=== PATIENT | male | born 1935 | race Caucasian/White ===

== ENCOUNTER 2017-06-23 12:19 | Emergency (ER) | payer MEDICARE ==
--- NOTE | ~2017-06-23 | CR230 ---
[facility]. [facility] A Service of [facility] & [facility] RADIOLOGY TEXT RESULTS PATIENT: CRISTINE GREEN LOCATION: SED : 36 UNIT #: [id number] AGE: [address]: ALEXA SANTANA SEX: M ORDER DR: [id number] [place] [address] [id number] E MR#: [id number] Acc #: [id number] NAME: CRISTINE GREEN : 1935 SEX: M STUDY DATE/TIME: 06/23/2017 12:45 UNIT: SED ROOM: STUDY DESCRIPTION: CR Shoulder Min 2 View Rt Ordering Physician: [facility] Primary Care Physician: Isra Yoder M.D. MEDICAL IMAGING REPORT This report is preliminary unless electronic signature is present. EXAM Right shoulder INDICATIONS Shoulder pain after fall yesterday. FINDINGS 3 views of the right shoulder were obtained. 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 No fracture or dislocation is seen. There is no AC joint separation. IMPRESSION AC joint and glenohumeral joint arthropathy. No acute findings. Dictated by... Johnny Alvarenga Jr., M.D. THIS IS AN ELECTRONICALLY VERIFIED REPORT Johnny Alvarenga Jr., M.D. at 06/24/2017 8:49 AM RLK/thuan TD: 06/23/2017 18:27 JOB #: [id number] MEDICAL IMAGING REPORT Page 1 of 1
--- NOTE | ~2017-06-23 | CR151 ---
[facility]. [facility] A Service of [facility] & [facility] RADIOLOGY TEXT RESULTS PATIENT: CRISTINE GREEN LOCATION: SED : 36 UNIT #: [id number] AGE: [address]: ALEXA SANTANA SEX: M ORDER DR: [id number] [place] [address] [id number] E MR#: [id number] Acc #: [id number] NAME: CRISTINE GREEN : 1935 SEX: M STUDY DATE/TIME: 06/23/2017 12:45 UNIT: SED ROOM: STUDY DESCRIPTION: CR Hip Min 2 Views Rt Ordering Physician: [facility] Primary Care Physician: Isra Yoder M.D. MEDICAL IMAGING REPORT This report is preliminary unless electronic signature is present. EXAM Right hip and pelvis INDICATIONS Hip pain after fall yesterday. FINDINGS AP pelvis was obtained, in addition to a frog-leg right hip. Note is made of diffuse atherosclerotic disease. No acute fractures are seen. The femoral heads are normal. There is degenerative disease in the lower lumbar spine and in the right sacroiliac joint. IMPRESSION Atherosclerotic disease. No acute fracture or malalignment. Dictated by... Johnny Alvarenga Jr., M.D. THIS IS AN ELECTRONICALLY VERIFIED REPORT Johnny Alvarenga Jr., M.D. at 06/24/2017 8:49 AM MELISSA/thuan TD: 06/23/2017 18:20 JOB #: [id number] MEDICAL IMAGING REPORT Page 1 of 1
--- NOTE | ~2017-06-23 | CR21 ---
[facility] A Service of [facility] & [facility] RADIOLOGY TEXT RESULTS PATIENT: CRISTINE GREEN LOCATION: SED : 36 UNIT #: [id number] AGE: [address]: ALEXA SANTANA SEX: M ORDER DR: [id number] [place] [address] [id number] E MR#: [id number] Acc #: [id number] NAME: CRISTIEN GREEN : 1935 SEX: M STUDY DATE/TIME: 06/23/2017 12:45 UNIT: SED ROOM: STUDY DESCRIPTION: CR Ankle Min 3 Views Rt Attending Physician: (Res) Alexa Santana Ordering Physician: Staff Doctor Not On Primary Care Physician: Isra Yoder M.D. MEDICAL IMAGING REPORT This report is preliminary unless electronic signature is present. EXAM Right ankle, 06/23. INDICATIONS Ankle pain after falling yesterday. FINDINGS Three views of the right ankle were obtained. Incidental note is made of atherosclerotic disease. There is degenerative spurring in the midfoot. Posterior and plantar calcaneal spurs are present. No acute fracture or malalignment is identified. Mortise is intact. IMPRESSION Degenerative disease and atherosclerotic calcifications. No acute fracture or malalignment. Dictated by... Johnny Alvarenga Jr., M.D. THIS IS AN ELECTRONICALLY VERIFIED REPORT Johnny Alvarenga Jr., M.D. at 06/24/2017 8:49 AM MELISSA/jose e TD: 06/23/2017 18:31 JOB #: [id number] MEDICAL IMAGING REPORT Page 1 of 1
--- NOTE | ~2017-06-23 | CR173 ---
[facility]. [facility] A Service of [facility] & [facility] RADIOLOGY TEXT RESULTS PATIENT: CRISTINE GREEN LOCATION: SED : 36 UNIT #: [id number] AGE: [address]: ALEXA SANTANA SEX: M ORDER DR: [id number] [place] [address] [id number] E MR#: [id number] Acc #: [id number] NAME: CRISTINE GREEN : 1935 SEX: M STUDY DATE/TIME: 06/23/2017 12:45 UNIT: SED ROOM: STUDY DESCRIPTION: CR Knee 3 Views Rt Ordering Physician: [facility] Primary Care Physician: Isra Yoder M.D. MEDICAL IMAGING REPORT This report is preliminary unless electronic signature is present. EXAM Right knee INDICATIONS Knee pain after falling yesterday. FINDINGS 3 views of the right knee were obtained. Incidental note is made of atherosclerotic disease. There is tricompartmental osteoarthritis. There is chondrocalcinosis in the medial and lateral compartments. No acute fracture is seen. There is no definite joint effusion. 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 No acute findings in the knee. Dictated by... Johnny Alvarenga Jr., M.D. THIS IS AN ELECTRONICALLY VERIFIED REPORT Johnny Alvarenga Jr., M.D. at 06/24/2017 8:49 AM MELISSA/thuan TD: 06/23/2017 18:17 JOB #: [id number] MEDICAL IMAGING REPORT Page 1 of 1
[~2017-06-23 12:19] MED LIST: BENAZEPRIL; JANUVIA50 MG; PRAVASTATIN SOD40 MG; TOPROL XL; [UNRECOGNIZED DRUG - OTHER]
== END 2017-06-23 13:53 | disposition home or self-care (01) ==
LOC: SED 12:19
DX: S40.011A Contusion of right shoulder, initial encounter (principal); S80.01XA Contusion of right knee, initial encounter; S70.01XA Contusion of right hip, initial encounter; S90.01XA Contusion of right ankle, initial encounter; I10 Essential (primary) hypertension; E11.9 Type 2 diabetes mellitus without complications; J45.909 Unspecified asthma, uncomplicated; Z23 Encounter for immunization; W18.09XA Striking against other object with subsequent fall, initial encounter; Y92.89 Other specified places as the place of occurrence of the external cause
CPT/HCPCS: 73030; 73502; 73562; 73610; 90471; 90715; 99283